=== PATIENT | female | born 1975 | race Hispanic/Latino ===

== ENCOUNTER 2018-03-29 14:25 | Emergency (ER) | payer OTHER ==
[~2018-03-29] VITALS: Ht 149.9 cm; Wt 81.7 kg
[~2018-03-29 14:25] MED LIST: AUGMENTIN 875-1 EACH PO; BUPROPION XL150 MG PO; CIPRODEX OTIC7.5 ML AD; HYDROXYZINE HCL10 MG PO; IBUPROFEN600 MG PO; LISINOPRIL-HCT1 EACH PO; LORATADINE10 MG PO; MELOXICAM7.5 MG PO; METOPROLOL TART25 MG PO; NORCO 5-325 TA1 EACH PO; OFLOXACIN10 ML AU; PSEUDOEPHEDRINE60 MG PO; TRAMADOL HCL50 MG PO; VISTARIL50 MG PO
== END 2018-03-29 15:09 | disposition left against medical advice (07) ==
LOC: ED 14:25
DX: R10.9 Unspecified abdominal pain (principal); I10 Essential (primary) hypertension; F17.200 Nicotine dependence, unspecified, uncomplicated; Z79.899 Other long term (current) drug therapy
CPT/HCPCS: 99281

== ENCOUNTER 2018-07-24 21:57 | Emergency (ER) | payer OTHER ==
[~2018-07-24] VITALS: Ht 149.9 cm; Wt 88.5 kg
--- OUTSIDE RECORDS SUMMARY | ~2018-07-24 | XMS | Clinical Summary ---
Demographics + + + | Address | [address] | | | [place] [address] | + + + | Home Phone | | + + + | Preferred Language | Unknown | + + + | Marital Status | Single | + + + | Latter Day Affiliation | Unknown | + + + | Race | White | + + + | Ethnic Group | Other Race | + + + Author + + + | Author | [facility] | + + + | Organization | [facility] | + + + | Address | Unknown | + + + | Phone | Unavailable | + + + Care Team Providers + +------+ + | Care Property Inspector Name | Role | Phone | + +------+ + | Joe Perales NP | PP | | + +------+ + Source Comments [facility] and [facility] InPatient.[facility] Allergies Not on File Current Medications Not on file Active Problems Not on file Social History + +-------+ +--------+------+ | Tobacco Use | Types | Packs/Day | Years | Date | | | | | Used | | + +-------+ +--------+------+ | Never Assessed | | | | | + +-------+ +--------+------+ + + + | Sex Assigned at | Date Recorded | | | | + + + | Not on file | | + + + Plan of Treatment + + + + + | Health Maintenance | Due Date | Last Done | Comments | + + + + + | Influenza (Flu) | | | | | vaccination (#1) | 8 | | | + + + + + Results Not on filefrom Last 3 Months Insurance + +--------+ +--------+-------+---------+ | Payer | Benefi | Subscriber | Type | Phone | Address | | | t Plan | ID | | | | | | / | | | | | | | Group | | | | | + +--------+ +--------+-------+---------+ | 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
--- OUTSIDE RECORDS SUMMARY | ~2018-07-24 | XMS | Clinical Summary ---
Demographics + + + | Address | [address] | | | [place] [address] | + + + | Home Phone | | + + + | Preferred Language | Unknown | + + + | Marital Status | Single | + + + | Sabianist Affiliation | Unknown | + + + | Race | White | + + + | Ethnic Group | Other Race | + + + Author + + + | Author | [facility] | + + + | Organization | [facility] | + + + | Address | Unknown | + + + | Phone | Unavailable | + + + Care Team Providers + +------+ + | Care Him Tech Name | Role | Phone | + +------+ + | Joe Perales NP | PP | | + +------+ + Source Comments [facility] and [facility] InPatient.[facility] & [facility] Allergies Not on File Current [...] | | | + +--------+ +--------+-------+---------+ | 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
--- OUTSIDE RECORDS SUMMARY | 2018-07-24 22:02 | XMS ---
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 Details: AMA - LEFT AFTER IV DILAUDID GIVEN CRITERIA MET - Group Notification CARE PROVIDERS VALERIE ZAMAN Primary Care Current PHONE: [phone] Tom has no Care Guidelines for this patient. Care History Medical/Surgical 04/08/2018 [facility] - Patient is currently established with [facility]. If patient is seen in the ED during business hours. Please contact CHWs at [facility] at [phone]. Care Recommendation: This patient has had 5 or more Emergency Department visits in the last 12 months.\T\nbsp; Patient requires education on the scope and purpose of the ED as an acute care provider not a Primary Care Provider and should not be utilized for chronic conditions.\T\nbsp; If patient returns to ED please contact Community Health WorkerKim at [phone]. These are guidelines and the provider should exercise clinical judgment when providing care. Substance Use/Overdose 04/30/2018 [facility] USE CAUTION WITH NARCOTICS FOR ABDOMINAL PAIN.\T\nbsp; PATIENT AMA ONCE AFTER IV DILAUDID GIVEN.\T\nbsp; E.D. VISIT COUNT (12 MO.) 3 [facility] TOTAL 3 NOTE: Visits indicate total known visits. ED/UCC VISIT TRACKING (12 MO.) 07/24/2018 21:57 [facility] [place] TYPE: Emergency COMPLAINT: - NEAR SYNCOPE 04/07/2018 02:26 [facility] [place] TYPE: Emergency COMPLAINT: - L SIDED ABD PAIN DIAGNOSES: - Unspecified abdominal pain - Nicotine dependence, unspecified, uncomplicated - Essential (primary) hypertension - Other stimulant abuse, uncomplicated - Cannabis abuse, uncomplicated 03/29/2018 14:26 [facility] [place] TYPE: Emergency COMPLAINT: - L SIDE PAIN DIAGNOSES: - Other senior care (current) drug therapy - Essential (primary) hypertension - Unspecified abdominal pain - Nicotine dependence, unspecified, uncomplicated INPATIENT VISIT TRACKING (12 MO.) No inpatient visits to display in this time frame [email or web address]
[2018-07-24] MEDS ORDERED: LISINOPRIL-HCT1 EAC2 PO (22:12)
[2018-07-24] MEDS ORDERED: PRAZOSIN HCL1 MG PO (22:14)
[2018-07-24] MEDS ORDERED: BUSPIRONE HCL10 MG PO (22:14)
[2018-07-24] MEDS ORDERED: FLUOXETINE HCL20 MG PO (22:15)
--- NOTE | 2018-07-26 14:29 | EKG ---
[facility] [address] [place], [place] [address] Signed Normal sinus rhythm Nonspecific T wave abnormality Prolonged QT Abnormal ECG No previous ECGs available Confirmed by YASIR HEART DO ([id number]) on 07/26/2018 2:29:11 PM Electronically Signed By: YASIR HEART DO 07/26/18 1429 PATIENT NAME: SANDRO DRAKE Electrocardiogram DATE OF : 79 PHYSICIAN: YASIR HEART DO REPORT #: [id number] REPORT IS CONFIDENTIAL AND NOT TO BE RELEASED WITHOUT AUTHORIZATION
== END 2018-07-25 00:13 | disposition home or self-care (01) ==
LOC: ED 21:57
DX: R55 Syncope and collapse (principal); I10 Essential (primary) hypertension; F17.200 Nicotine dependence, unspecified, uncomplicated; Z79.899 Other long term (current) drug therapy
CPT/HCPCS: 80053; 84484; 84703; 85025; 93005; 93010; 99284

== ENCOUNTER 2019-04-25 10:39 | Emergency (ER) | payer OTHER ==
[~2019-04-25] VITALS: Ht 149.9 cm; Wt 99.8 kg
[~2019-04-25 10:39] MED LIST changes: +BUSPIRONE HCL10 MG PO; +FLUOXETINE HCL20 MG PO; +LISINOPRIL-HCT1 EAC2 PO; +PRAZOSIN HCL1 MG PO
--- OUTSIDE RECORDS SUMMARY | 2019-04-25 10:42 | XMS ---
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 Details: AMA - LEFT AFTER IV DILAUDID GIVEN CRITERIA MET - Group Notification - [facility] - Has Care Guidelines CARE PROVIDERS VALERIE ZAMAN Primary Care Current PHONE: [phone] Tom has no Care Guidelines for this patient. Care History Medical/Surgical 04/08/2018 [facility] [place] [facility] - Patient is currently established with [facility]. If patient is seen in the ED during business hours. Please contact CHWs at [facility] at [phone]. Care Recommendation: This patient has had 5 or more Emergency Department visits in the last 12 months.\T\nbsp; Patient requires education on the scope and purpose of the ED as an acute care provider not a Primary Care Provider and should not be utilized for chronic conditions.\T\nbsp; If patient returns to ED please contact Community Health WorkerKim at [phone]. These are guidelines and the provider should exercise clinical judgment when providing care. Substance Use/Overdose 04/30/2018 [facility] USE CAUTION WITH NARCOTICS FOR ABDOMINAL PAIN.\T\nbsp; PATIENT AMA ONCE AFTER IV DILAUDID GIVEN.\T\nbsp; E.D. VISIT COUNT (12 MO.) 2 [facility] TOTAL 2 NOTE: Visits indicate total known visits. ED/UCC VISIT TRACKING (12 MO.) 04/25/2019 10:40 [facility] [place] TYPE: Emergency COMPLAINT: - TONGUE SWELLING 07/24/2018 21:57 [facility] [place] TYPE: Emergency COMPLAINT: - NEAR SYNCOPE DIAGNOSES: - Syncope and collapse - Essential (primary) hypertension - Other longterm (current) drug therapy - Nicotine dependence, unspecified, uncomplicated INPATIENT VISIT TRACKING (12 MO.) No inpatient visits to display in this time frame [id number]
[2019-04-25] MEDS ORDERED: PENICILLIN V P500 MG PO (12:31)
[2019-04-25] MEDS ORDERED: IBU800 MG PO (12:31)
== END 2019-04-25 12:59 | disposition home or self-care (01) ==
LOC: ED 10:39
DX: J02.9 Acute pharyngitis, unspecified (principal); I10 Essential (primary) hypertension; Z87.891 Personal history of nicotine dependence; Z79.899 Other long term (current) drug therapy
CPT/HCPCS: 70491; 80053; 84703; 85025; 99283-25; J1885

== ENCOUNTER 2019-12-16 01:58 | Inpatient (IN) | payer OTHER ==
[~2019-12-16] VITALS: Ht 149.9 cm; Wt 105.7 kg
--- NOTE | ~2019-12-16 | DS ---
[facility] [address] [place], [place] [address] Draft ADMISSION DATE: 12/16/2019 DISCHARGE DATE: 12/18/2019 REASON FOR ADMISSION: This morbidly obese (BMI 47.1) 44-year-old dark-skinned woman presented to the emergency room at approximately 4:00 a.m. on December 16, 2019. She was complaining of epigastric and right subcostal pain. She has had similar symptoms for the preceding several weeks. A gallbladder ultrasound was performed, which demonstrated gallstones. She has had similar symptoms in the past. She has a distant history of hepatitis C chronically, but no evidence of ascites or other abnormalities including cirrhosis on ultrasound. She was admitted for further evaluation and care. The patient has a prior history of drug abuse and currently "clean" and working out [employer] in support of those with similar past histories. PERTINENT PHYSICAL EXAMINATION: GENERAL: Showed a very short dark-skinned woman with a very rotund abdomen. She had tenderness in epigastric and right subcostal area. EXTREMITIES: Normal. CHEST: Clear. HEART: Regular without murmur. HOSPITAL COURSE: She was admitted, given intravenous fluid resuscitation as she was clinically dehydrated. Parental pain medication and IV antibiotics were administered as well. She was prepared for operation and on December 17, 2019, underwent laparoscopic appendectomy. This was challenging given her significant obesity. Though she did not have evidence of cirrhosis, she did have a fatty liver and adhesions of the capsule liver to the diaphragm. In addition, a laparoscopic cholecystectomy with cholangiogram, which was difficult. She underwent percutaneous liver biopsy of the medial segment of the left lobe of the liver. A drain was placed in the subhepatic space. She did well following the operation and was soon thereafter able to eat her solid food. By time of discharge, she is ambulating well, tolerating a regular diet. Incisions are healing well. A drain was placed in the subhepatic space showed no sign of bile leak and was removed. DISCHARGE MEDICATIONS: 1. Motrin 600 mg p.o. q.6 hours as needed for pain #60. 2. Tylenol plain 1000 mg p.o. q.6 hours as needed for pain #60. PATIENT NAME: SANDRO DRAKE DISCHARGE SUMMARY DATE OF : 79 REPORT #: [id number] PHYSICIAN: PONCHO STYLES MD PCP: JOE ZAMAN REPORT IS CONFIDENTIAL AND NOT TO BE RELEASED WITHOUT AUTHORIZATION [facility] [address] [place], [place] [address] Draft 3. Gray 7.5/325 half tab p.o. at bedtime as needed. 4. She will continue lisinopril/ hydrochlorothiazide 1012.5 1 p.o. daily for hypertension. 5. Terazosin 1 mg p.o. at bedtime as needed for "nightmares.". 6. Buspirone 15 mg 1.5 tabs two times daily. 7. Fluoxetine 60 mg p.o. daily. 8. Metformin 500 mg p.o. daily. 9. She will then discontinue penicillin that has been given for reasons uncertain and which have been recently stopped by patient. DISCHARGE DIAGNOSES: 1. Acute calculous cholecystitis. 2. Morbid obesity, BMI 47.1. 3. History of drug abuse and dependency, now recovered. 4. Hepatitis C with hepatic capsule adhesions. 5. Status post laparoscopic cholecystectomy with intraoperative cholangiogram, prolonged complicated (difficult) and concurrent laparoscopic liver biopsy. FOLLOWUP PLAN: She will return to see me in approximately 4 weeks. MD FRANCISCA Garcia/ROSAL /[id number] cc: MD Joe Watson FNP Copies: PAVAN RIVERA MD, WADE R FNP ~ PATIENT NAME: SANDRO DRAKE DISCHARGE SUMMARY DATE OF : 79 REPORT #: [id number] PHYSICIAN: PONCHO STYLES MD PCP: JOE ZAMAN REPORT IS CONFIDENTIAL AND NOT TO BE RELEASED WITHOUT AUTHORIZATION
--- NOTE | ~2019-12-16 | OR ---
[facility] [address], [place] [address] Draft DATE OF OPERATION: 12/17/2019 SURGEON: Poncho Styles MD PREOPERATIVE DIAGNOSES: 1. Acute calculous cholecystitis. 2. Morbid obesity. Body mass index 47.1. 3. History of hepatitis C. POSTOPERATIVE DIAGNOSES: 1. Acute calculous cholecystitis. 2. Morbid obesity. Body mass index 47.1. 3. History of hepatitis C. PROCEDURES: 1. Laparoscopic cholecystectomy (difficult). Surgeon-directed fluoroscopy. 2. Percutaneous liver biopsy of medial segment of the left lobe of liver. ANESTHESIA: General endotracheal. Alexey Nanda, REHABILITATION TEAM LEAD and local 10 mL of 0.25% Marcaine with epinephrine. INDICATION: This 44-year-old dark-skinned woman presented to the emergency room in approximately 4:00 a.m. yesterday with severe epigastric and right subcostal pain. Gallbladder ultrasound demonstrated gallstones. She has had similar such symptoms over the preceding several weeks. 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 She has no evidence of ascites or signs of cirrhosis, particularly. She has been admitted to the hospital given intravenous fluid resuscitation, IV antibiotics, and so forth and is now to undergo cholecystectomy preferred by laparoscopic approach. Her significant body mass index of 47.1. It is notable that a laparoscopic approach is hoped for, though an open procedure may be required. The risks of bleeding, infection, bile duct injury, need for open procedure, and other unforeseen complications was reviewed in detail. She understands and wished to proceed. FINDINGS: The gallbladder was indeed subacutely inflamed. There were adhesions to the capsule of the liver. The liver was fatty infiltrated, but without nodular changes. Biopsy of the PATIENT NAME: SANDRO DRAKE OPERATIVE REPORT DATE OF : 79 REPORT #: [id number] PHYSICIAN: PONCHO STYLES MD PCP: VALERIE ZAMAN REPORT IS CONFIDENTIAL AND NOT TO BE RELEASED WITHOUT AUTHORIZATION [facility] [address] [place], [place] [address] Draft liver was accomplished. The gallbladder was difficult to dissect due to inflammation, but it was accomplished safely. The cystic duct was relatively large. It was secured with clips without problem. Cholangiogram was normal. There was some bleeding in the area at the infundibulum requiring a few clips, but good hemostasis was assured. A Jeff Lalit closure device was required in the epigastric port for bleeding at that site and that was secured as well. A drain was placed in the subhepatic space. DESCRIPTION OF PROCEDURE: The patient was brought to the operating room, given a general endotracheal anesthetic. Preoperative antibiotic Ancef was given, sequential compression device stockings used, and heparin subcutaneously administered. The abdomen was prepared with chlorhexidine solution and draped sterilely. Extremely large and thick abdominal wall pannus was notable. An infraumbilical incision was made and using an open Maddy cannula technique, the abdomen was entered and pneumoperitoneum achieved to a level of 14 mmHg with carbon dioxide gas. Intra-abdominal inspection showed the gallbladder to be obscured by fat, draped over the liver edge. Three additional trocars were placed in usual configuration in the subxiphoid, right midclavicular, and right anterior axillary line. With two-hand manipulation, the omentum could be unfurled from over the liver revealing the underlying gallbladder, which was subacutely inflamed and chronically inflamed as well. The gallbladder was elevated cephalad and adhesions to the gallbladder were taken down with blunt electrocautery dissection. The infundibulum was difficult to define initially, so dissection was begun high in the gallbladder and as it proceeded, filmy adhesions could be more thoroughly identified. The infundibulum funneled down to a relatively large cystic duct. Further dissection was undertaken and some bleeding was encountered behind the infundibulum, which required several clip applications for hemostasis, but it was accomplished safely. Further dissection allowed for good definition of the cystic duct. The cystic duct was clipped at the gallbladder cystic duct junction after milking the cystic duct in retrograde fashion. A transverse choledochotomy was made in the cystic duct and egress of thickened bile was noted. Using the Gonzalez type cholangiocatheter, intraoperative cholangiography was undertaken. The cystic duct was relatively lengthy. The cholangiogram appeared normal. Conventional anatomy was noted. The catheter was removed and the cystic duct was triply clipped and divided. The clips did cover the span of the cystic duct well. The gallbladder was then dissected free in a retrograde fashion using a blunt electrocautery dissection. Entry to the gallbladder was noted and small amount of bile leak was noted. The gallbladder was thus placed in an endobag and extracted through the infraumbilical port site without problem. Excess irrigation fluid was suctioned free. Careful inspection of the very cystic duct area was undertaken, and there was found to be good hemostasis. There were adhesions to the capsule of the liver, which were thickened. They were not taken down. There was no nodular changes of the liver. Mindful of her known hepatitis PATIENT NAME: SANDRO DRAKE OPERATIVE REPORT DATE OF : 79 REPORT #: [id number] PHYSICIAN: PONCHO STYLES MD PCP: VALERIE ZAMAN CATALYST OPERATOR GASOLINE REPORT IS CONFIDENTIAL AND NOT TO BE RELEASED WITHOUT AUTHORIZATION [facility] [address] [place], [place] [address] Draft C, liver biopsy was deemed appropriate. Using a percutaneous technique with a biopsy gun and biopsy was taken of the medial segment left lobe of the liver. A good specimen was noted. Cautery was applied to that site with good effect. Through a right-sided trocar site given the extent of dissection, bleeding, and so forth, previously 7 mm flat Dakota drain was placed in the subhepatic space. Upon extraction, the epigastric port became clear. There was a constant dripping of blood through that site and therefore a Jeff-Lalit device was used to secure the fascia with good hemostatic effect. The other trocars removed showing no sign of bleeding. Excess irrigation fluid was suctioned free. The drain was secured with the skin with nylon suture. Attention was then turned towards closure. The infraumbilical fascial incision was reapproximated with interrupted 0 Vicryl suture as well as a running 0 PDS suture. Irrigation was undertaken in each site. 10 mL of 0.25% Marcaine with epinephrine injected locally and skin closed with interrupted 3-0 Vicryl. Steri-Strips were applied. The patient was ultimately extubated and transported to recovery room in good condition and suffered no complications. Sponge, needle, and instrument counts reported as correct x3. The operation was rather prolonged, complicated, and difficult lasting about 2 hours. MD FRANCISCA Garcia/LUCERO /[id number] cc: NANCY Johnson MD Copies: VALERIE ZAMAN PATIENT NAME: SANDRO DRAKE OPERATIVE REPORT DATE OF : 79 REPORT #: [id number] PHYSICIAN: PONCHO STYLES MD PCP: VALERIE ZAMAN REPORT IS CONFIDENTIAL AND NOT TO BE RELEASED WITHOUT AUTHORIZATION [address] [address] Draft PAVAN RIVERA MD ~ PATIENT NAME: SANDRO DRAKE OPERATIVE REPORT DATE OF : 79 REPORT #: [id number] PHYSICIAN: PONCHO STYLES MD PCP: VALERIE ZAMAN REPORT IS CONFIDENTIAL AND NOT TO BE RELEASED WITHOUT AUTHORIZATION
--- NOTE | ~2019-12-16 | HP ---
[facility] [facility] [address] [place], [place] [address] Draft ADMISSION DATE: 12/16/2019 REASON FOR ADMISSION: Acute cholecystitis. HISTORY OF PRESENT ILLNESS: This rotund, 44-year-old, , dark-skinned woman, presented to the emergency room at approximately 2:30 in the morning, was evaluated by Dr. Melton. She was having complaints of right upper abdominal pain. She had eaten pizza earlier in the evening. She has had episodes of similar pain over the past two weeks or so. The pain was sharp and burning and was associated with some vomiting. Her evaluation included a gallbladder ultrasound at approximately 3 in the morning, which showed gallstones without gallbladder wall thickening. Lab studies showed normal CBC and Chem profile. She was admitted for further evaluation and care. Notably, her urinalysis was reasonably normal, squames 3+, urine bacteria 1+. The patient has a past history of significant drug abuse including heroin addiction and so forth. She has been "clean" for quite some time. 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 She previously smoked. She does not smoke now. She does continue to use marijuana. Surgical history includes as well as right leg orthopedic operation in the past. Her last menstrual period was November 28. Close review of her medical history shows she does have hypertension, distant history of alcoholism, methamphetamine addiction, hepatitis C. No specific history of opiate abuse that I can confirm actually. REVIEW OF SYSTEMS: She is feeling better now. She has some persistent right subcostal pain. She denies any nausea or vomiting. She is slightly hungry. PHYSICAL EXAMINATION: GENERAL: This is a very short, dark-skinned woman, who has a very rotund abdomen. HEENT: Mucous membranes are slightly dry. Trachea is midline. CHEST: Clear. HEART: Regular without murmur. ABDOMEN: Soft generally and mild tenderness is noted in the right subcostal area. EXTREMITIES: Show no clubbing, cyanosis, or edema. DIAGNOSTIC DATA: PATIENT NAME: SANDRO DRAKE HISTORY AND PHYSICAL DATE OF : 79 REPORT #: [id number] PHYSICIAN: PONCHO STYLES MD PCP: VALERIE ZAMAN REPORT IS CONFIDENTIAL AND NOT TO BE RELEASED WITHOUT AUTHORIZATION [facility] [address] [place], [place] [address] Draft Lab studies show a white count of 9.2, hematocrit 42.6, platelets 125,000. Chem profile shows a creatinine of less than 0.54, glucose 111, AST 11, alkaline phosphatase 73, lipase 31. Beta-hCG is negative. I have reviewed the ultrasound images and the report as well. The liver appears reasonably normal. As regards, no nodularity or anything of that sort. The gallbladder shows a single gallstone in the distal portion. There may be some sludge within the gallbladder as well. ASSESSMENT: The patient has acute calculous cholecystitis and distant history of significant drug abuse, but now free of that problem. She is admitted for further evaluation and care. She is somewhat clinically dehydrated and need fluids, continued use of antibiotics, parenteral pain medication, and plan for cholecystectomy. Discussed the risks of bleeding, infection, bile duct injury, need for open procedure, failure to cure her symptoms and other unforeseen complications related to cholecystectomy. More likely, this would be done tomorrow considering her lack of preparation thus far. MD FRANCISCA Garcia/ROSAL /[id number] cc: NANCY Johnson MD Copies: VALERIE ZAMAN SHELDON MD ~ PATIENT NAME: SANDRO DRAKE HISTORY AND PHYSICAL DATE OF : 79 REPORT #: [id number] PHYSICIAN: PONCHO STYLES MD PCP: VALERIE ZAMAN REPORT IS CONFIDENTIAL AND NOT TO BE RELEASED WITHOUT AUTHORIZATION
[~2019-12-16 01:58] MED LIST changes: -BUSPIRONE HCL10 MG PO; +BUSPIRONE HCL15 MG PO; -FLUOXETINE HCL20 MG PO; +FLUOXETINE HCL60 MG PO; +IBU800 MG PO; +PENICILLIN V P500 MG PO
--- OUTSIDE RECORDS SUMMARY | 2019-12-16 02:00 | XMS ---
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 No recent Security Events currently on file CRITERIA MET - Group Notification - [facility] - Has Care Guidelines CARE PROVIDERS VALERIE ZAMAN Nurse Practitioner: Family 04/28/2019-Current PHONE: [phone] VALERIE ZAMAN Primary Care Current PHONE: [phone] Guidelines [facility] Guidelines Date: 04/28/2019 Care Coordination: Currently receives services from [employer].\T\nbsp; Please contact [employer], , with any mental health concerns.\T\nbsp; Care History Medical/Surgical 04/08/2018 [facility] - Patient is currently established with [facility]. If patient is seen in the ED during business hours. Please contact CHWs at [facility] at [phone]. Care Recommendation: This patient has had 5 or more Emergency Department visits in the last 12 months.\T\nbsp; Patient requires education on the scope and purpose of the ED as an acute care provider not a Primary Care Provider and should not be utilized for chronic conditions.\T\nbsp; If patient returns to ED please contact Community Health WorkerKim at [phone]. These are guidelines and the provider should exercise clinical judgment when providing care. Substance Use/Overdose 04/30/2018 [facility] USE CAUTION WITH NARCOTICS FOR ABDOMINAL PAIN.\T\nbsp; PATIENT AMA ONCE AFTER IV DILAUDID GIVEN.\T\nbsp; E.D. VISIT COUNT (12 MO.) 2 [facility] TOTAL 2 NOTE: Visits indicate total known visits. ED/UCC VISIT TRACKING (12 MO.) 12/16/2019 01:[address] [facility] [place] TYPE: Emergency COMPLAINT: - RIGHT FLANK PAIN 04/25/2019 10:[address] 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
--- NOTE | 2019-12-16 04:40 | NUR ---
pt ARRIVES TO FLOOR VIA STRETCHER, AMBULATORY TO HOSPITAL BED. VSS. DENIES PAIN, DENIES NAUSEA. ASSESSMENT COMPLETE, ABD SOFT, NON-TENDER W PALPATION, BOWEL TONES ACTIVE X 4. IV FLUSHED, INFUSING WNL ORDERED. ORIENTATION TO ROOM PROVIDED. pt ALERT AND ORIENTED X 4. VERBALIZES UNDERSTANDING TO USE CALL LIGHT BEFORE GETTING OUT OF BED.
--- NOTE | 2019-12-16 06:03 | NUR ---
pt ARRIVES TO MEDICAL FLOOR THIS SHIFT. NO C/O PAIN, NAUSEA. BOWEL TONES ACTIVE X 4, ABD SOFT, NON-TENDER. SBA. IVF INFUSING WNL ORDERED. NPO.
--- NOTE | 2019-12-16 06:46 | NUR ---
CHECKED ON pt. AWAKE, SBA TO RESTROOM FOR VOID AND BACK TO BED. pt RATES PAIN 3/10, REQUESTING PRN MEDICATION. ADMINISTERED WNL. CALL LIGHT IN REACH.
--- NOTE | 2019-12-16 07:25 | NUR ---
Bedside report received, orders acknowledged. Patient sleeping in bed, respirations even and unlabored. Denies needs at this time, call light within reach.
--- NOTE | 2019-12-16 07:40 | NUR ---
PATIENT RESTING IN BED. SETS UP BATHROOM FOR SHOWER. CALL LIGHT WITHIN REACH. NO OTHER NEEDS AT THIS TIME
--- NOTE | 2019-12-16 09:00 | NUR ---
Patient laying in bed, reports pain of 1/10 after prn pain medication. Hibiclens shower given, patient independent in shower. Saline locked.
--- NOTE | 2019-12-16 09:36 | NUR ---
PATIENT SITTING UP IN BED. IV WRAPPED. VITAL SIGNS AND I&O DONE. PATIENT GOES TO THE BATHROOM TO TAKE A SHOWER. CALL LIGHT WITHIN REACH. NO OTHER NEEDS AT THIS TIME
--- NOTE | 2019-12-16 10:00 | NUR ---
Patient reports pain of 3/10, prn pain medication given (see MAR). Patient returns to bed from shower, reconnected to IV fluids at 125 mls/hr. Patient denies further needs at this time, call light within reach.
[2019-12-16] MEDS ORDERED: METFORMIN HCL500 MG PO (10:19)
--- NOTE | 2019-12-16 11:30 | NUR ---
Patient laying in bed, awake and alert. Denies pain, no needs at this time. Call light within reach.
--- NOTE | 2019-12-16 12:45 | NUR ---
Spoke with Lidia. She is awaiting surgery as a to follow. States she lives in [place] in an apartment with her 16 yo son. Sister Khloe is very supportive and Lidia will go home with her for few days when discharged. She does not use any DME. She does has 15 steps to get into her apartment. She is sleepy during my visit so visit was kept short.
--- NOTE | 2019-12-16 13:07 | NUR ---
PATIENT RESTING IN BED. VITAL SIGNS AND I&O DONE. CALL LIGHT WITHIN REACH. NO OTHER NEEDS AT THIS TIME
--- NOTE | 2019-12-16 13:11 | NUR ---
MED REC COMPLETE
--- NOTE | 2019-12-16 15:15 | NUR ---
CALLED TO INQUIRE TO IF SCHEDULED ABX WAS WANTED, NEW ORDERS GIVEN.
--- NOTE | 2019-12-16 15:25 | NUR ---
Patient laying in bed, awake and alert. IV abx infusing at 200 mls/hr. Patient reports pain of 4/10, prn pain medication given (see MAR). No further needs at this time, call light within reach.
--- NOTE | 2019-12-16 15:51 | NUR ---
Dr. Curry in room to discuss POC with patient
--- NOTE | 2019-12-16 16:28 | NUR ---
LR bolus infusing. Clear liquid tray delivered, patient denies pain or nausea with meal. No further needs at this time, call light within reach.
--- NOTE | 2019-12-16 17:45 | NUR ---
Patient reports pain of 4/10, prn pain medication given. Fan brought to bedside per patient request. Denies pain or nausea after meal. Requests quiet in order to sleep, which is accommodated. No further needs at this time. Call light within reach.
--- NOTE | 2019-12-16 20:09 | NUR ---
REPORT RECEIVED FROM DAY SHIFT RN. PT LYING IN BED RESTING WITH EYES CLOSED, NAD. IVF INFUSING. NO NEEDS AT THIS TIME. CALL LIGHT IN REACH.
--- NOTE | 2019-12-16 21:30 | NUR ---
EVENING ASSESSMENT COMPLETE. SCHEDULED MEDS GIVEN. PT DENIES PAIN, SAYS IT IS MORE OF A "BURNING FEELING" IN THE RIGHT QUADRANT. PT BECAME NAUSEOUS AFTER PO MEDS WERE GIVEN. NO EMESIS, BUT DRY HEAVES. PT DENIED THE NEED FOR PRN ANTIEMETIC. COLD WASH CLOTH GIVEN.
--- NOTE | 2019-12-16 22:15 | NUR ---
PT RESTING IN BED WITH EYES CLOSED, NAD.
--- NOTE | 2019-12-17 00:20 | NUR ---
PT SNORING SOFTLY. SPO2 96% ON RA, HR 61. PT NPO PER MD ORDER.
--- NOTE | 2019-12-17 01:35 | NUR ---
CALL LIGHT ANSWERED. PT UP TO BR WITH MINIMAL ASSIST. BACK TO BED, CAROL WELL. PT DENIES PAIN OR NAUSEA. SCD'S IN PLACE. CALL LIGHT IN REACH.
--- NOTE | 2019-12-17 02:50 | NUR ---
CALL LIGHT ANSWERED. SBA TO THE BATHROOM AND BACK TO BED. SCD BACK ON. CALL LIGHT IN REACH. NO OTHER NEEDS AT THIS TIME.
--- NOTE | 2019-12-17 05:20 | NUR ---
PT IN TO BR TO COMPLETE CHLORHEXIDINE WIPEDOWN INDEPENDENTLY, INSTRUCTION GIVEN. CLEAN GOWN AND LINENS PROVIDED. PT DENIES PAIN OR NAUSEA. SCHEDULED TYLENOL HELD DUE TO NPO STATUS. ALL QUESTIONS ANSWERED. NO FURTHER NEEDS AT THIS TIME.
--- NOTE | 2019-12-17 06:40 | NUR ---
ALEIDA TAPED TO LR BAG, SURGERY PLANNING TO BE HERE WITHIN 10 MIN. PT EXCITED TO GO, SMILING, USING HER PHONE. HAS VOIDED.
--- NOTE | 2019-12-17 07:00 | NUR ---
Patient left unit with OR crew for surgery
--- NOTE | 2019-12-17 09:40 | NUR ---
12/17/19 0940 Luma Collazo 0984-PATIENT ARRIVED TO PACU ON 6L MASK NONAROUSABLE. RR EVEN. ORAL AIRWAY IN PLACE. SR. ABDOMEN ROUND DRAIN IN PLACE SEROUSANGUINOUS DRAINAGE. 4 SITES TO ABDOMEN STERI STRIPS IN PLACE.
--- NOTE | 2019-12-17 10:36 | NUR ---
Patient arrives to the unit via stretcher from OR. Patient transfers to bed with 1PA. Bedside report received from WARREN Ge. CPOX in place, vital signs taken. Assessment complete. AMINA drain in place, draining serosanguinous fluid. Steristrips in place over abdominal lap sites with scant blood drainage. LR running at 85 mls/hr. Pillow in place to splint abdomen. Patient reports pain of 5/10. Patient denies needs at this time, call light within reach.
--- NOTE | 2019-12-17 11:30 | NUR ---
Patient laying in bed watching tv. Vital signs taken, assessment complete. AMINA draining serosanguinous fluid. Steristrips intact. Bowel tones active. Patient requests clear liquid tray, which is ordered. Sprite delivered to room. Patient reports pain of 4/10, prn pain medication given (see MAR). No further needs at this time, call light within reach.
--- NOTE | 2019-12-17 13:00 | NUR ---
Patient laying in bed, awake and alert. Vital signs taken, assessment complete. Bowel tones active. Patient denies pain or nausea with meal. AMINA draining serosanguinous fluid, steristrips intact with scant blood. Patient up to commode to void. Returns to bed, call light within reach. Denies needs at this time.
--- NOTE | 2019-12-17 14:00 | NUR ---
Spoke with Lidia. She is drowsy following surgery. Denies c/o. Warm blanket given. Denies other needs at this time.
--- NOTE | 2019-12-17 14:45 | NUR ---
1440-PATIENT REPORTED "GONNA THROW UP" DRY HEAVING, TEARFUL CRYING WASH CLOTH TO FOREHEAD. ENCOURAGED PATIENT TO TAKE SLOW BREATHES. HOB ELEVATED. AFTER SEVERAL MINUTES PATIENT CRYING HOLDING STOMACH WHEN ASKED IF IN PAIN STATES "ITS BETTER" UNABLE TO RATE NUMBER. REPORTS "NAUSEA BETTER" PATIENT ALSO REPORTS "NO ONE IS HERE WITH ME" RN COMFORTED PATIENT. IVF INFUSING. LUNCH AT BEDSIDE DISCUSSED WAITING A BIT TO EAT. RA 96% RR EVEN. 1450-PATIENT AWAKE WATCHING TV REPORTS "FEELS BETTER"
--- NOTE | 2019-12-17 18:26 | NUR ---
Patient ambulating hallways with nursing staff. Reports walking "Feels good." Reports pain in left side is relieved by hot pack. Fluids running, patient is steady on feet while ambulating.
--- NOTE | 2019-12-17 19:00 | NUR ---
shift report received from karla ahn at bedside. pt resting in bed, awake. iv fluids infusing, site wnl. lap sites x3 wnl, steri strips in place with scant dry red drainage. johanne drain site wnl, serosanguineous in color. pt receiving prn pain medication from radha gerber at this time. no further needs, call light in reach.
--- NOTE | 2019-12-17 23:00 | NUR ---
ASSESSMENT COMPELTE, SCHEDULED MEDS GIVEN (SEE EMAR). PRN PAIN MEDICATION GIVEN FOR INCREASED PAIN. IV FLUIDS INFUSING, SITE WNL. NO CHANGE IN ABDOMIANL LAP SITES OR AMINA DRAIN SITE. CPOX IN PLACE, VSS. NO FURTHER NEEDS, SCD'S ON. CALL LIGHT IN REACH.
--- NOTE | 2019-12-18 02:02 | NUR ---
ASSESSMENT COMPLETE, NO NEW CHANGES OR CONCERNS. PT REPORTS TOLERABLE 2-3/10 PAIN. LAP SITES X3 INTACT, STERI STRIPS IN PLACE, WITH SCANT DRY RED DRAINAGE. AMINA SITE WNL, EMPTIED. 7MLS OUTPUT. VSS, PT DENIES ADDITIONAL NEEDS. CALL LIGHT IN REACH. SCD'S ON. CALL LIGHT IN REACH.
--- NOTE | 2019-12-18 05:30 | NUR ---
PT UP TO BR AND BACK TO BED. PT STATES SHE HAS 4/10 PAIN. PT REPOSITIONED, PILLOWS BEHIND BACK. NO OTHER NEEDS. CALL LIGHT IN REACH.
--- NOTE | 2019-12-18 06:37 | NUR ---
scheduled ancef and tylenol given (see emar). new bag iv fluids infusing at 85mls/hr, site wnl. vss, i&o's collected. pt back in bed, scd's on. call light in reach.
--- NOTE | 2019-12-18 08:01 | NUR ---
BEDSIDE REPORT RECEIVED FROM LUNA KELLEY. WHITE BOARD UPDATED. ALL QUESTIONS ANSWERED. PATIENT RESTING WITH EYES CLOSED IN BED. DENIES NAUSEA AT THIS TIME. AMINA DRAIN C/D/I. LAP SITES C/D/I.
[2019-12-18] MEDS ORDERED: IBUPROFEN600 MG PO (11:08)
[2019-12-18] MEDS ORDERED: TYLENOL EXTRA500 MG PO (11:09)
[2019-12-18] MEDS ORDERED: NORCO 7.5-3251 EACH PO (11:10)
--- NOTE | 2019-12-18 11:24 | NUR ---
AMINA DRAIN REMOVED BY DR STYLES. OPEN TO AIR. COVERED WITH GAUZE AND TRANSPARENT DRESSING. WOULD LIKE TO SHOWER PRIOR TO DISCHARGE. IV REMOVED.
--- NOTE | 2019-12-18 13:45 | NUR ---
SPOKE WITH SANDRO. SHE PLANS ON GOING HOME LATER TODAY AND WILL STAY WITH HER SISTER. DENIES NEEDS FOR DC. SHE IS AWAITING DR STYLES TO WRITE DC ORDERS.
--- NOTE | 2019-12-18 14:05 | NUR ---
PT GAVE PERMISSION FOR ME TO ENTER HER RM. SHE WAS STANDING UP, APPEARED TO BE TOUCHING A RECENT WOUND FROM INCISION. PT SEEMED RATHER TAKEN BACK WHEN I TOLD HER MY NAME AND TITLE. I VISITED FOR A MOMENT AND FELT I SHOULD LET RN KNOW, WHICH I DID. GAVE BLESSING, WILL FOLLOW NEEDED
--- NOTE | 2019-12-18 19:34 | PATH ---
[facility] [address] [place], [place] [address] Signed SPECIMEN(S): A GALLBLADDER SPECIMEN(S): B LIVER SPECIMEN SOURCE: A. GALLBLADDER B. LIVER CLINICAL HISTORY: Acalculous cholecystitis, biliary colic. Hepatitis C +. FINAL PATHOLOGIC DIAGNOSIS: A. Gallbladder, cholecystectomy: - Chronic cholecystitis with cholesterolosis. - Cholelithiasis. B. Liver, biopsy: - Chronic hepatitis, grade 1 inflammation, stage 0 fibrosis. - Macrovesicular steatosis. - See comment. COMMENT: The history of Hepatitis C infection is noted. Sections of the liver demonstrate minimal portal inflammation with lymphocytes and rare eosinophils and neutrophils (Paul-Kavon grade 1). No significant fibrosis is seen with trichrome and reticulin stains (Paul-Kavon Stage 0). These findings are consistent with changes secondary to viral hepatitis C infection. Large droplet macrovesicular steatosis is present throughout the tissue, with approximately 30% steatosis. No ballooning of hepatocytes, apoptotic bodies, Reva hyaline, or lobular necroinflammation is seen. There is no abnormal iron accumulation with iron stain and no evidence of Alpha-1 antitrypsin deficiency with PAS/D stain. As part of [facility] Quality Improvement Program, part B of this case was reviewed by another member of our pathology staff. NAL:AMB:cml:C2NR MICROSCOPIC EXAMINATION: Histologic sections of all submitted blocks are examined by light microscopy. These findings, together with the gross examination, support the pathologic diagnosis. Special stains (with appropriately staining controls) trichrome, reticulin, PAS/D, and iron were performed on the liver biopsy. PATIENT NAME: SANDRO DRAKE PATHOLOGY DATE OF : 79 REPORT #: [id number] PHYSICIAN: URI OVERTON PCP: VALERIE ZAMAN REPORT IS CONFIDENTIAL AND NOT TO BE RELEASED WITHOUT AUTHORIZATION [facility] [address] [place], [place] [address] Signed GROSS DESCRIPTION: Two specimens are received in two containers, labeled "LG." A. The specimen, labeled "LG, gallbladder," per requisition, is received in formalin and consists of Specimen: Opened gallbladder. Dimensions: 7.6 x 4.4 x 1.4 cm. Serosa: Smooth and violaceous. Cystic Duct: Unobstructed. Calculi: Single yellow-green bosselated stone, measuring 0.9 x 0.7 x 0.8 cm. Mucosa: Green and velvety with yellow flecking. Wall thickness: 0.4 cm. Lymph node: No pericystic lymph nodes are grossly identified. Additional: None. Financial Reporting Manager sections are submitted in cassette (A1). B. The specimen, labeled " LG, liver," per requisition, is received in formalin and consists of single dark gao core, measuring 1.7 cm in length x 0.1 cm in diameter. The specimen is inked with diluted black ink and entirely submitted in cassette (B1). AT (under the direct supervision of a pathologist) The Gross Description was prepared using a voice recognition system. The report was reviewed for accuracy; however, sound-alike word errors, addition and/or deletions may occur. If there is any question about this report, please contact Client Services. PERFORMING LABORATORY: The technical component was performed by [facility], [address] [place] [id number] (Tierce Filler: Nidhi Manzano MD; CLIA# [id number]). Professional interpretation was performed by [facility], [facility], [address] [address] (CLIA# [id number]). Diagnostician: Jyothi Lopez MD Pathologist Electronically Signed 12/18/2019 Copies: ~ PATIENT NAME: SANDRO DRAKE PATHOLOGY DATE OF : 79 REPORT #: [id number] PHYSICIAN: URI PATHOLOGY PCP: VALERIE ZAMAN REPORT IS CONFIDENTIAL AND NOT TO BE RELEASED WITHOUT AUTHORIZATION
== END 2019-12-18 18:26 | disposition home or self-care (01) | DRG 418 ==
LOC: ED 01:58 → MS 02:00
PROVIDERS: ADMIT Surgery
PROC: 0FB23ZX Excision of Left Lobe Liver, Percutaneous Approach, Diagnostic (ICD-10-PCS; 2019-12-17)
PROC: 0FT44ZZ Resection of Gallbladder, Percutaneous Endoscopic Approach (ICD-10-PCS; principal; 2019-12-17 07:30)
PROC: BF10YZZ Fluoroscopy of Bile Ducts using Other Contrast (ICD-10-PCS; 2019-12-17 07:30)
DX: K80.12 Calculus of gallbladder with acute and chronic cholecystitis without obstruction (principal); Z68.42 Body mass index [BMI] 45.0-49.9, adult; B18.2 Chronic viral hepatitis C; I10 Essential (primary) hypertension; E66.01 Morbid (severe) obesity due to excess calories; E86.0 Dehydration; K76.0 Fatty (change of) liver, not elsewhere classified; F11.21 Opioid dependence, in remission; K66.0 Peritoneal adhesions (postprocedural) (postinfection); Z87.891 Personal history of nicotine dependence; Z79.899 Other long term (current) drug therapy
CPT/HCPCS: 00790; 74300; 76705; 80053; 81001; 83690; 84703; 85025; 96361; 96376; 99285-25; G0378; J0690; J1100; J1170; J1644; J1885; J2001; J2270; J2405; J2704; J3010; J7030; J7121; Q9967

== ENCOUNTER 2020-01-12 12:44 | Emergency (ER) | payer OTHER ==
[~2020-01-12] VITALS: Ht 149.9 cm; Wt 105.7 kg
[~2020-01-12 12:44] MED LIST changes: +METFORMIN HCL500 MG PO; +NORCO 7.5-3251 EACH PO; +TYLENOL EXTRA500 MG PO
--- OUTSIDE RECORDS SUMMARY | 2020-01-12 12:46 | XMS ---
PreManage Notification: SANDRO DRAKE Security [employer] Lead Events 1 event(s) in the past 18 months Most recent security events: Elopement at [facility] 12/17/2019 09:55 - Patient eloped before treatment completed. Details: AMA - LEFT AFTER IV DILAUDID GIVEN CRITERIA MET - Group Notification - [facility] - Has Care Guidelines - [facility] - 2 Visits in 30 Days CARE PROVIDERS VALERIE ZAMAN Nurse Practitioner: Family 04/28/2019-Current PHONE: [phone] VALERIE ZAMAN Primary Care Current PHONE: [phone] [facility] Date: 04/28/2019 Care Coordination: Currently receives services from [facility]T\[facility]; Please contact [employer], , with any mental health concerns.\T\nbsp; Care History Substance Use/Overdose 04/30/2018 [facility] USE CAUTION WITH NARCOTICS FOR ABDOMINAL PAIN. PATIENT AMA ONCE AFTER IV DILAUDID GIVEN. Medical/Surgical 12/17/2019 [facility] Patient admitted to [facility].\T\nbsp; Scheduled follow up with Valerie Zaman on 02/2020 canceled. 04/08/2018 [facility] - Patient is currently established with [facility]. If patient is seen in the ED during business hours. Please contact CHWs at [facility]. Care Recommendation: If this patient has had 5 or more Emergency Department visits in the last 12 months.\T\nbsp; Patient will require education on the scope and purpose of the ED as an acute care provider not a Primary Care Provider and should not be utilized for chronic conditions.\T\nbsp; These are guidelines and the provider should exercise clinical judgment when providing care. E.D. VISIT COUNT (12 MO.) 3 [facility]. TOTAL 3 NOTE: Visits indicate total known visits. ED/UCC VISIT TRACKING (12 MO.) 01/12/2020 12:45 [facility] TYPE: Emergency COMPLAINT: - RT LEG INJURY 12/16/2019 01:59 [facility] TYPE: Emergency COMPLAINT: - RIGHT FLANK PAIN 04/25/2019 10:40 [facility] TYPE: Emergency COMPLAINT: - TONGUE SWELLING DIAGNOSES: - Acute pharyngitis, unspecified - Essential (primary) hypertension - Other snf (current) drug therapy - Personal history of nicotine dependence INPATIENT VISIT TRACKING (12 MO.) 12/16/2019 16:00 [facility] [place] TYPE: Medical Surgical COMPLAINT: - BILIARY COLIC DIAGNOSES: - Opioid dependence, in remission - Other snf (current) drug therapy - Essential (primary) hypertension - Personal history of nicotine dependence - Personal history of nicotine dependence - Fatty (change of) liver, not elsewhere classified - Peritoneal adhesions (postprocedural) (postinfection) - Calculus of gallbladder with acute and chronic cholecystitis - Chronic viral hepatitis C - Calculus of gallbladder with acute and chronic cholecystitis - Right upper quadrant pain - Essential (primary) hypertension - Dehydration - Peritoneal adhesions (postprocedural) (postinfection) - Morbid (severe) obesity due to excess calories - Body mass index (BMI) 45.0-49.9, adult - Dehydration - Opioid dependence, in remission - Other snf (current) drug therapy - Body mass index (BMI) 45.0-49.9, adult - Fatty (change of) liver, not elsewhere classified - Chronic viral hepatitis C - Morbid (severe) obesity due to excess calories [email or web address]
== END 2020-01-12 14:35 | disposition home or self-care (01) ==
LOC: ED 12:44
DX: S93.401A Sprain of unspecified ligament of right ankle, initial encounter (principal); I10 Essential (primary) hypertension; X58.XXXA Exposure to other specified factors, initial encounter
CPT/HCPCS: 73610; 99283-25; A9270

== ENCOUNTER 2020-11-03 09:17 | Emergency (ER) | payer OTHER ==
[~2020-11-03] VITALS: Ht 149.9 cm; Wt 99.8 kg
--- OUTSIDE RECORDS SUMMARY | 2020-11-03 09:20 | XMS ---
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 Details: AMA - LEFT AFTER IV DILAUDID GIVEN CRITERIA MET - Group Notification - [facility] - Has Care Guidelines CARE PROVIDERS VALERIE ZAMAN Nurse Practitioner: Family 04/28/2019-Current PHONE: [phone] Care Guidelines exist for the following facilities: [facility] ( 04/28/2019 ) Care History Substance Use/Overdose 04/30/2018 [facility] USE CAUTION WITH NARCOTICS FOR ABDOMINAL PAIN. PATIENT AMA ONCE AFTER IV DILAUDID GIVEN. Medical/Surgical 12/17/2019 [facility] Patient admitted [facility]; Scheduled follow up with Valerie Zaman on 02/2020 canceled. 04/08/2018 [facility] - Patient is currently established with [facility]. If patient is seen in the ED during business hours. Please contact CHWs at [facility]. Care Recommendation: If this patient has had [...] care. E.D. VISIT COUNT (12 MO.) 3 [facility] TOTAL 3 NOTE: Visits indicate total known visits. ED/UCC VISIT TRACKING (12 MO.) 11/03/2020 09:17 [facility] TYPE: Emergency COMPLAINT: - COLD SYMPTOMS 01/12/2020 12:45 [facility] TYPE: Emergency COMPLAINT: - RT LEG INJURY DIAGNOSES: - Pain in right ankle and joints of right foot - Sprain of unspecified ligament of right ankle, initial encounter - Essential (primary) hypertension - Exposure to other specified factors, initial encounter 12/16/2019 01:59 [facility] TYPE: Emergency COMPLAINT: - RIGHT FLANK PAIN INPATIENT VISIT TRACKING (12 MO.) 12/16/2019 16:00 [facility] TYPE: Medical Surgical COMPLAINT: - BILIARY COLIC DIAGNOSES: - Opioid dependence, in remission - Other emt intermediate (current) drug therapy - Essential (primary) hypertension - Personal history of nicotine dependence - Personal history of nicotine dependence - Fatty (change of) liver, not elsewhere classified - Peritoneal adhesions (postprocedural) (postinfection) - Calculus of gallbladder with acute and chronic cholecystitis without obstruction - Chronic viral hepatitis C - Calculus of gallbladder with acute and chronic cholecystitis without obstruction - Right upper quadrant pain - Essential (primary) hypertension - Dehydration - Peritoneal adhesions (postprocedural) (postinfection) - Morbid (severe) obesity due to excess calories - Body mass index [BMI] 45.0-49.9, adult - Dehydration - Opioid dependence, in remission - Other emt intermediate (current) drug therapy - Body mass index [BMI] 45.0-49.9, adult - Fatty (change of) liver, not elsewhere classified - Chronic viral hepatitis C - Morbid (severe) obesity due to excess calories [email or web address]
== END 2020-11-03 12:09 | disposition home or self-care (01) ==
LOC: ED 09:17
DX: M54.41 Lumbago with sciatica, right side (principal); Z20.822 Contact with and (suspected) exposure to COVID-19; I10 Essential (primary) hypertension; Z79.899 Other long term (current) drug therapy
CPT/HCPCS: 96372; 99283; C9803; J1885; U0003

== ENCOUNTER 2022-11-11 12:47 | Emergency (ER) | payer OTHER ==
[~2022-11-11] VITALS: Ht 149.9 cm; Wt 92.1 kg
[~2022-11-11 12:47] MED LIST changes: +ISOSORBIDE MONO30 MG PO; +LASIX20 MG PO; +LISINOPRIL10 MG PO; +POTASSIUM CHLO10 MEQ PO; +SPIRONOLACTONE25 MG PO
--- OUTSIDE RECORDS SUMMARY | 2022-11-11 12:54 | XMS ---
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 12/17/2019 [facility] Patient admitted to [facility].\T\nbsp; Scheduled follow up with Valerie Zaman on 02/2020 canceled. 04/08/2018 [facility] - Patient is currently established with [facility]. If patient is seen in the ED during business hours. Please contact CHWs at [facility]. Care Recommendation: If this patient [...] judgment when providing care. Substance Use/Overdose 04/30/2018 [facility] USE CAUTION WITH NARCOTICS FOR ABDOMINAL PAIN. PATIENT AMA ONCE AFTER IV DILAUDID GIVEN. E.D. VISIT COUNT (12 MO.) 2 [facility]. TOTAL 2 NOTE: Visits indicate total known visits. ED/UCC VISIT TRACKING (12 MO.) 11/11/2022 12:47 [facility] [place] [facility] [place] TYPE: Emergency COMPLAINT: - NAUSEA/VOMITING 02/19/2022 17:02 [facility] [place]: Emergency COMPLAINT: - DIFF BREATHING INPATIENT VISIT TRACKING (12 MO.) 02/19/2022 17:03 [facility] [place] [facility] [facility] [place] TYPE: Observation COMPLAINT: - ACUTE SYSTOLIC CONGESTIVE HEART FAILURE DIAGNOSES: - Elevation of levels of liver transaminase levels - Hypertensive heart disease with heart failure - Acute systolic (congestive) heart failure - Personal history of nicotine dependence - Atrial septal defect - Personal history of other infectious and parasitic diseases - Contact with and (suspected) exposure to COVID-19 - Other stimulant abuse, in remission - Hypertensive urgency - Pulmonary hypertension, unspecified - Patient's other noncompliance with medication regimen [email or web address]
[2022-11-11] MEDS ORDERED: METOPROLOL SUCC25 MG PO (12:59)
== END 2022-11-11 17:26 | disposition home or self-care (01) ==
LOC: ED 12:47
DX: R11.2 Nausea with vomiting, unspecified (principal); F41.9 Anxiety disorder, unspecified; R19.7 Diarrhea, unspecified; I10 Essential (primary) hypertension; Z87.891 Personal history of nicotine dependence; Z79.899 Other long term (current) drug therapy
CPT/HCPCS: 36415; 80053; 83880; 84484; 85025; 99284; A9270; A9270-GY